=== PATIENT | female | born 1950 | race Caucasian/White ===

== ENCOUNTER 2018-02-04 06:08 | Day surgery (SDC) | payer MEDICARE ==
[~2018-02-04 06:08] MED LIST: ACETAMINOPHEN 325 MG TAB PO
[2018-02-04] MEDS ORDERED: TROPICAMIDE 1% OPHTH SOLN 2ML As Ordered ×2 (06:28)
[2018-02-04] MEDS ORDERED: CYCLOPENTOLATE 2% OPHTH SOLN 2ML BTL As Ordered ×2 (06:28)
[2018-02-04] MEDS ORDERED: OFLOXACIN 0.3 % (OCUFLOX) OPTH SOL 5ML As Ordered ×2 (06:28)
[2018-02-04] MEDS ORDERED: PHENYLEPHRINE 2.5% OPHTH SOL 2ML As Ordered ×2 (06:29)
[2018-02-04] MEDS ORDERED: BETAMETHASONE SOLUSPAN 6MG/ML INJ 5ML (J0702) As Ordered ×2 (06:42)
[2018-02-04] MEDS ORDERED: FILTER 1.2 MICRON (ADULT TPN/MANNITOL/REMICADE) XX ×2 (06:56)
[2018-02-04] MEDS ORDERED: PHENYLEPHRINE HCL 10 % OPHTH. SOL 5ML OD ×2 (07:00)
[2018-02-04] MEDS: MANNITOL 20% BAG 250 ML IV ×2 (07:00)
[2018-02-04] MEDS ORDERED: PROPARACAINE 0.5% OPHTH SOL 15ML OD ×2 (07:01)
[2018-02-04] MEDS: CYCLOPENTOLATE 2% OPHTH SOLN 2ML BTL OD ×2 (07:15)
[2018-02-04] MEDS: TROPICAMIDE 1% OPHTH SOLN 2ML OD ×2 (07:15)
[2018-02-04] MEDS: LIDOCAINE 3.5 % 1ML OPHTH TOPICAL GEL OU ×2 (07:15)
[2018-02-04] MEDS: OFLOXACIN 0.3 % (OCUFLOX) OPTH SOL 5ML OD ×2 (07:15)
[2018-02-04] MEDS: PHENYLEPHRINE 2.5% OPHTH SOL 2ML OD ×2 (07:15)
[2018-02-04] MEDS: POVIDONE-IODINE 5% OPHTH PREP SOL 30ML As Ordered ×2 (07:45)
[2018-02-04] MEDS: AcetaZOLAMIDE 500MG INJECTION (J1120) IV ×2 (07:53)
[2018-02-04] MEDS: BSS with VANC/TOB/EPI for EYE CASES IR ×2 (07:59)
[2018-02-04] MEDS ORDERED: dexameTHASONE 4 MG/ML 1ML VIAL (J1100) As Ordered ×2 (08:19)
[2018-02-04] MEDS ORDERED: MIDAZOLAM INJ 2 MG/2 ML VIAL (J2250) As Ordered ×2 (08:19)
[2018-02-04] MEDS ORDERED: ONDANSETRON 4MG/2ML VIAL (J2405) As Ordered ×2 (08:19)
[2018-02-04] MEDS ORDERED: fentaNYL 100 MCG/2 ML INJECTION (J3010) As Ordered ×2 (08:19)
[2018-02-04] MEDS ORDERED: PROPOFOL 200 MG/20 ML VIAL As Ordered ×2 (08:19)
[2018-02-04] MEDS ORDERED: LIDOCAINE 2% INJ 100 MG/5 ML SDV (FOR ANES.) As Ordered ×2 (08:19)
[2018-02-04] MEDS ORDERED: ePHEDrine SULFATE 25 MG/5 ML(5MG/ML) SYRINGE As Ordered ×4 (08:26)
[2018-02-04] MEDS ORDERED: PHENYLephrine HCL 500 MCG/5 ML (100MCG/ML) SYRINGE (J2370) As Ordered ×2 (08:26)
[2018-02-04] MEDS: TOBRAMYCIN INJ 80 MG/2 ML VIAL (J3260) As Ordered ×2 (08:53)
[2018-02-04] MEDS: TOBRADEX OPHTH OINT 3.5 GM As Ordered ×2 (08:53)
[2018-02-04] MEDS ORDERED: TRIMETHOBENZAMIDE 300 MG CAP PO ×2 (09:45)
[2018-02-04] MEDS ORDERED: ONDANSETRON 4MG/2ML VIAL (J2405) IV ×2 (09:45)
[2018-02-04] MEDS ORDERED: KETOROLAC 0.5% OPHTH SOLN OD ×2 (09:45)
[2018-02-04] MEDS ORDERED: LR 1,000 ML IV ×2 (09:45)
[2018-02-04] MEDS ORDERED: METOCLOPRAMIDE INJ 10MG/2ML VIAL (J2765) IV ×2 (09:45)
[2018-02-04] MEDS ORDERED: fentaNYL 100 MCG/2 ML INJECTION (J3010) IV ×2 (09:45)
[2018-02-04] MEDS: AcetaZOLAMIDE 500 MG ER CAP PO ×2 (10:00)
== END 2018-02-04 10:55 | disposition home or self-care (01) ==
LOC: M SDC 06:08
DX: H18.601 Keratoconus, unspecified, right eye (principal); H25.011 Cortical age-related cataract, right eye; I10 Essential (primary) hypertension; K21.9 Gastro-esophageal reflux disease without esophagitis; M12.9 Arthropathy, unspecified; L30.9 Dermatitis, unspecified; J45.909 Unspecified asthma, uncomplicated; J30.9 Allergic rhinitis, unspecified; Z88.1 Allergy status to other antibiotic agents; Z91.018 Allergy to other foods; Z91.040 Latex allergy status; Z79.899 Other long term (current) drug therapy; Z98.51 Tubal ligation status; Z78.0 Asymptomatic menopausal state
CPT/HCPCS: 65730

== ENCOUNTER → 2018-04-01 | Outpatient (REF) | payer MEDICARE | LOC: M LAB REF 04-02 15:45 | DX: H57.9 Unspecified disorder of eye and adnexa (principal) | CPT/HCPCS: 87205 ==

== ENCOUNTER 2018-04-05 06:15 | Day surgery (SDC) | payer MEDICARE ==
[~2018-04-05] VITALS: Ht 160 cm; Wt 69.9 kg
[~2018-04-05 06:15] MED LIST changes: -ACETAMINOPHEN 325 MG TAB PO; +ACETAMINOPHEN 325 MG TAB PO PRN; +ALLE10TA2 PO; +LOSA100T50 PO; +SYMB16INH INH; +VALA1TAB2 PO; +VENTAER INH
[2018-04-05] MEDS ORDERED: OFLOXACIN 0.3 % (OCUFLOX) OPTH SOL 5ML OD ONE (07:00)
[2018-04-05] MEDS ORDERED: LIDOCAINE 3.5 % 1ML OPHTH TOPICAL GEL OU ONE (07:00)
[2018-04-05] MEDS ORDERED: BSS with VANC/TOB/EPI for EYE CASES IR ONE (07:00)
[2018-04-05] MEDS ORDERED: FILTER 1.2 MICRON (ADULT TPN/MANNITOL/REMICADE) XX ONE (07:09)
[2018-04-05] MEDS ORDERED: MIDAZOLAM INJ 2 MG/2 ML VIAL (J2250) As Ordered ONE (07:13)
[2018-04-05] MEDS ORDERED: LIDOCAINE 2% INJ 100 MG/5 ML SDV (FOR ANES.) As Ordered ONE (07:13)
[2018-04-05] MEDS ORDERED: PROPOFOL 200 MG/20 ML VIAL As Ordered ONE (07:13)
[2018-04-05] MEDS ORDERED: fentaNYL 100 MCG/2 ML INJECTION (J3010) As Ordered ONE (07:13)
[2018-04-05] MEDS ORDERED: TOBRAMYCIN INJ 80 MG/2 ML VIAL (J3260) As Ordered ONE (07:15)
[2018-04-05] MEDS ORDERED: PILOCARPINE 1% OPHTH SOLN 15 ML OD SCH (07:15)
[2018-04-05] MEDS ORDERED: POVIDONE-IODINE 5% OPHTH PREP SOL 30ML As Ordered ONE (07:15)
[2018-04-05] MEDS ORDERED: BETAMETHASONE SOLUSPAN 6MG/ML INJ 5ML (J0702) As Ordered ONE (07:15)
[2018-04-05] MEDS ORDERED: AcetaZOLAMIDE 500MG INJECTION (J1120) IV ONE (07:15)
[2018-04-05] MEDS ORDERED: MANNITOL 20% BAG 250 ML IV ONE (07:15)
[2018-04-05] MEDS ORDERED: HEALON DUET PRO(HEALON 10MG/ML 0.55ML & HEALON ENDOCOAT 30MG/ML 0.85ML) As Ordered ONE (07:16)
[2018-04-05] MEDS ORDERED: TOBRADEX OPHTH OINT 3.5 GM As Ordered ONE (07:16)
[2018-04-05] MEDS ORDERED: VANCOMYCIN HCL 500 MG/10 ML VIAL (J3370) XX ONE (07:30)
[2018-04-05] MEDS ORDERED: ePHEDrine SULFATE 25 MG/5 ML(5MG/ML) SYRINGE As Ordered ONE ×2 (08:01→08:40)
[2018-04-05] MEDS ORDERED: ONDANSETRON 4MG/2ML VIAL (J2405) As Ordered ONE (08:08)
[2018-04-05] MEDS ORDERED: dexameTHASONE 4 MG/ML 1ML VIAL (J1100) As Ordered ONE (08:08)
[2018-04-05] MEDS ORDERED: VANCOMYCIN HCL 500 MG/10 ML VIAL (J3370) As Ordered ONE (08:11)
[2018-04-05] MEDS ORDERED: TRIMETHOBENZAMIDE 300 MG CAP PO PRN (09:30)
[2018-04-05] MEDS ORDERED: KETOROLAC 0.5% OPHTH SOLN OD ONE (09:30)
[2018-04-05] MEDS ORDERED: ONDANSETRON 4MG/2ML VIAL (J2405) IV PRN (09:45)
[2018-04-05] MEDS ORDERED: LR 1,000 ML IV SCH (09:45)
[2018-04-05] MEDS ORDERED: HYDROMORPHONE HCL 0.5 MG/ 0.5 ML SYRINGE (J1170 PER 1) IV PRN (09:45)
[2018-04-05] MEDS: PERCOCET 5MG/325MG TAB PO PRN ×2 (09:45→10:17)
[2018-04-05] MEDS ORDERED: fentaNYL 100 MCG/2 ML INJECTION (J3010) IV PRN (09:45)
[2018-04-05 11:15] VITALS: BP 107/54
--- NOTE | 2018-05-08 13:55 | RO ---
DATE OF PROCEDURE: 04/05/2018 PREOPERATIVE DIAGNOSIS: Failed corneal graft. POSTOPERATIVE DIAGNOSIS: Failed corneal graft. PROCEDURE: Penetrating repeat keratoplasty right eye. SURGEON: Frank Alberts MD [employer]LOBAL SALES EXECUTIVE: None. ANESTHESIA: General. COMPLICATIONS: None. PROCEDURE IN DETAIL: Patient was brought to the operating room, laid in supine position. The eye was prepped and draped in a sterile fashion for ophthalmic surgery, following which the patient was intubated by the department of anesthesia, after which the eye was draped. A lid speculum was placed. Attention was first diverted to the donor cornea, which was examined, documentation reviewed, and a 9 mm corneal punch was used to prepare the graft tissue for transplant. Attention was then diverted to the patient. A 12 corneal marker was used to kit the cornea. Previously placed sutures were then removed with the help of the super sharp blade, 0.12 smooth forceps and Vannas scissors. After this with the help of the carmencita blade and 0.12 corneal forceps, the previously placed opacified corneal tissue was slowly removed from the patient host interface. This tissue was then sent for pathology and microbiology and fungal cultures to the lab as well as to [facility] in [place] for pathology evaluation. After the tissue was removed, the new corneal tissue was placed over the EndoCoat over the patient's iris and secured in placed using 12 interrupted #10 nylon sutures. All of the sutures knots were buried. Throughout the procedure the anterior chamber was maintained using balance salt solution. Following which #10-0 nylon suture was used in an fashion in between the interrupted sutures. Laxity was removed, suture was tied, wound knot was buried. At the end of the case, sub-Tenon injection of tobramycin and Celestone were given. Maxitrol ointment was applied. Eye was patched, Hinojosa shield was applied. The patient was extubated and returned to the recovery room in stable condition.
== END 2018-04-05 11:50 | disposition home or self-care (01) ==
LOC: M SDC 06:15
PROVIDERS: ATTEND Ophthalmology
DX: T86.840 Corneal transplant rejection (principal); I10 Essential (primary) hypertension; H25.011 Cortical age-related cataract, right eye; H04.121 Dry eye syndrome of right lacrimal gland
CPT/HCPCS: 65755; 87070; 87075; 87102; 87205; 87529; 88300; 88305; J0702; J1100; J1120; J2250; J2405; J3010; J3260; J3370